=== PATIENT | male | born 1995 | race Two or more races ===

== ENCOUNTER 2017-04-11 01:17 | Emergency (ER) | payer BC, MEDICAID ==
[2017-04-11] MEDS ORDERED: Lidocaine 1% 30 ML SDV INJECT ONE (01:29)
--- NOTE | 2017-04-11 01:33 | EDM.PDOC ---
ED HPI GENERAL MEDICAL PROBLEM - General Chief Complaint: Laceration Stated Complaint: CUT ON FOREHEAD [id number] Time Seen by Provider: 04/11/17 01:30 Source of Information: Reports: Patient History Limitations: Reports: No Limitations - History of Present Illness INITIAL COMMENTS - FREE TEXT/NARRATIVE: fell on ice and cut right brow, denies LOC/N Right Face Pain Score (Numeric/FACES): 5 - Related Data Allergies Allergy/AdvReac Type Severity Reaction Status Date / Time No Known Allergies Allergy Verified 04/11/17 01:23 Home Meds: Home Meds . [No Known Home Meds] 04/11/17 [History] Past Medical History - Past Surgical History Other Musculoskeletal Surgeries/Procedures:: hand surgery Social & Family History - Tobacco Use Smoking Status *Q: Current Every Day Smoker Years of Tobacco use: 3 Packs/Tins Daily: 0.1 Second Hand Smoke Exposure: Yes - Recreational Drug Use Recreational Drug Use: Yes ED ROS GENERAL - Review of Systems Review Of Systems: ROS reveals no pertinent complaints other than HPI. ED EXAM, SKIN/RASH Exam: See Below Exam Limited By: No Limitations General Appearance: Alert, WD/WN, No Apparent Distress Eye Exam: Bilateral Eye: PERRL (pupils ess ER @ 4mm), Other (individ eye fine but both eye see one obj lower. wears glasses unable to see without them.) Ears: Hearing Grossly Normal Throat/Mouth: Normal Voice, No Airway Compromise Head: Other (right brow lac, no O/B) Neck: Non-Tender, Full Range of Motion Respiratory/Chest: No Respiratory Distress Cardiovascular: Regular Rate, Rhythm GI/Abdominal: Soft, Non-Tender Neurological: Alert, Oriented, Normal Cognition, Normal Gait, No Motor/Sensory Deficits Psychiatric: Normal Affect, Normal Mood Skin: Warm, Dry, Normal Color Location, Skin: Face Lymphatic: No Adenopathy ED SKIN PROCEDURES - Laceration/Wound Repair Right Brow Lac/Wound length In cm: 2 (right brow) Appearance: Subcutaneous, Linear, Clean Anesthetic Type: Local Local Anesthesia - Lidocaine (Xylocaine): 1% Plain Skin Prep: Chlorhexidine (Hibiciens) Exploration/Debridement/Repair: Wound Explored, In a Bloodless Field, No Foreign Material Found Closed with: Sutures Suture Size: 4-0 Suture Type: Nylon, Interrupted Sterile Dressing Applied: None Tetanus Status Addressed: Yes Complications: No Course - Vital Signs Last Recorded V/S: Last Vital Signs Temp 36.9 C 04/11/17 01:19 Pulse 113 H 04/11/17 01:19 Resp 18 04/11/17 01:19 BP 141/80 H 04/11/17 01:19 Pulse Ox 96 04/11/17 01:19 - Orders/Labs/Meds Meds: Medications Discontinued Medications Generic Name Dose Route Start Last Admin Trade Name Malini PRN Reason Stop Dose Admin Lidocaine HCl 30 ml 04/11/17 01:29 04/11/17 01:32 Xylocaine-Mpf 1% INJECT 04/11/17 01:30 30 ml ONETIME ONE Administration Departure - Departure Time of Disposition: 02:34 Disposition: Home, Self-Care 01 Condition: Good Clinical Impression: Laceration of brow without complication Qualifiers: Encounter type: initial encounter Qualified Code(s): S01.81XA - Laceration without foreign body of other part of head, initial encounter Periorbital contusion of right eye Qualifiers: Encounter type: initial encounter Qualified Code(s): S05.11XA - Contusion of eyeball and orbital tissues, right eye, initial encounter - Discharge Information Instructions: Laceration Care, Adult, [id number] Forms: ED Department Discharge Additional Instructions: 1) keep wound clean and dry 2) wound check if looks infected 3) suture removal 7 days 4) ice to swollen eye 5) see E[facility] TOMORROW
== END 2017-04-11 02:39 | disposition home or self-care (01) ==
LOC: DL.ED 01:17
DX: S01.81XA Laceration without foreign body of other part of head, initial encounter (principal); S05.11XA Contusion of eyeball and orbital tissues, right eye, initial encounter; F17.210 Nicotine dependence, cigarettes, uncomplicated; W00.0XXA Fall on same level due to ice and snow, initial encounter
CPT/HCPCS: 12011; 70450; 70486; 99283